=== PATIENT | female | born 1950 | race Caucasian/White ===

== ENCOUNTER 2019-01-14 18:49 | Emergency (ER) | payer OTHER, MEDICAID ==
[~2019-01-14] VITALS: Ht 157.5 cm; Wt 62.6 kg
[2019-01-14 19:16] VITALS: BP 166/90
--- NOTE | 2019-01-14 19:20 | NUR ---
TO LOBBY A/W BED, CINTIA MOYA NOTED
--- NOTE | 2019-01-14 19:35 | NUR ---
PT AMBULATED TO ED BED 05.
--- NOTE | 2019-01-14 19:45 | NUR ---
68/F PRESENTS TO ED WITH FAMILY, C/O DIZZINESS AND WEAKNESS SINCE THIS AM. PT REPORTS HAVING SIMILAR EPISODE 2 WEEKS AGO. PT REPORTS POSTERIOR HEADACHE. DENIES CP, SOB, N/V. -FACIAL DROOP, -ARM DRIFT, CLEAR SPEECH. AOX4, GCS 15, RR EVEN AND UNLABORED. LUNG SOUNDS CLEAR BL. DENIES MED HX RX CLARITIN, BENZONATATE
[2019-01-14] MEDS ORDERED: MECLIZINE 25 MG TAB PO ONE (20:00)
[2019-01-14 20:01] LABS: BASOPHILS # (AUTO) 0.1 K/uL (0.00-0.22); BASOPHILS % (AUTO) 1.1 % (0.0-2.0); EOSINOPHILS # (AUTO) 0.1 K/uL (0-0.4); HEMOGLOBIN 14.1 g/dL (12.0-16.0); LYMPHOCYTES # (AUTO) 5.2 K/uL (2.5-16.5); LYMPHOCYTES % (AUTO) 69.9 % (20.5-51.1); MEAN CORPUSCULAR HEMOGLOBIN 28 pg (27-31); MEAN CORPUSCULAR HGB CONC 33 g/dL (33-37); MEAN CORPUSCULAR VOLUME 86.6 fL (80-94); MONOCYTES # (AUTO) 0.4 K/uL (0.8-1.0); MONOCYTES % (AUTO) 5.5 % (1.7-9.3); NEUTROPHILS # (AUTO) 1.7 K/uL (1.8-7.7); NEUTROPHILS % (AUTO) 22.5 % (42.2-75.2); PLATELET COUNT (AUTO) 221 K/uL (140-450); RED BLOOD CELL COUNT(AUTO) 4.97 MIL/uL (4.20-5.40); RED CELL DISTRIBUTION WIDTH 15.1 % (11.6-13.7); WHITE BLOOD COUNT (AUTO) 7.5 K/uL (4.8-10.8)
--- NOTE | 2019-01-14 20:08 | NUR ---
Patient taken to CT via gurney.
[2019-01-14 20:11] LABS: CARBON DIOXIDE 29.1 mmol/L (21-32); CREATININE 1.1 mg/dL (0.6-1.3); POTASSIUM 4.1 mmol/L (3.5-5.1)
--- NOTE | 2019-01-14 20:16 | NUR ---
Patient returned from CT and placed into bed 5.
[2019-01-14 20:17] LABS: ALBUMIN 3.8 g/dL (3.4-5.0); TOTAL BILIRUBIN 0.3 mg/dL (0.0-1.0)
[2019-01-14 20:45] LABS: APPEARANCE,URINE CLEAR (CLEAR); BILIRUBIN,URINE NEGATIVE (NEGATIVE); BLOOD, URINE NEGATIVE (NEGATIVE); COLOR,URINE YELLOW (YELLOW); LEUKOCYTE ESTERASE ,URINE 2+ (NEGATIVE); NITRITE, URINE NEGATIVE (NEGATIVE); UGLUCOSE NEGATIVE (NEGATIVE)
--- NOTE | 2019-01-14 20:56 | NUR ---
PT LAYING IN BED, FAMILY AT BEDSIDE. REPORTS MILD IMPROVEMENT WITH DIZZINESS AFTER MECLIZINE PO. DENIES PAIN AT THIS TIME. ALL NEEDS MET.
[2019-01-14 21:05] LABS: RBC,URINE 0-5 /HPF (0-5); WBC,URINE 20-60 /HPF (0-5)
[2019-01-14 21:14] VITALS: BP 120/76
== END 2019-01-14 21:14 | disposition home or self-care (01) ==
LOC: MED 18:49
DX: R42 Dizziness and giddiness (principal); R51 Headache
CPT/HCPCS: 36415; 70450; 80053; 81001; 84484; 85025; 87086; 93005; 99284; J8597

== ENCOUNTER 2019-01-26 11:34 | Emergency (ER) | payer OTHER, MEDICAID ==
[~2019-01-26] VITALS: Ht 157.5 cm; Wt 62.6 kg
[2019-01-26 11:48] VITALS: BP 122/79
--- NOTE | 2019-01-26 11:58 | NUR ---
Patient ambulated to bed 5 at this time.
--- NOTE | 2019-01-26 12:12 | NUR ---
PT BIB SELF FOR DIZZYNESS X10 DAYS. PT WAS SEEN AT [facility] ON 01/14 FOR SAME REASON, DIAGNOSED WITH VERTIGO AND GIVEN PRESCRIPTION FOR MECLIZINE. PT STATES DIZZYNESS INCREASED 2 DAYS AGO AND SHE WENT TO PCP WHO TOLD HER TO INCREASE THE MECLIZINE TO 2 TABS BID. PT REPORTS NO RELIEF. PT ALSO REPORTS PRESSURE PAIN IN LT EAR THAT RADIATES TO BACK OF HEAD AT 7/10, THAT INCREASES WITH FLEXION OF NECK. PT REPORTS THAT SHE CANNOT STAND WITH BECOMING DIZZY THEN GETS NAUSEAS AND VOMITS. PT SPEECH CLEAR, FACIAL SYMMETRY INTACT, BUE EQUAL/STRONG, AAOX4, PERRLA. VSS. ER TO SEE PT. MEDHX:DENIES RX:MECLIZINE
--- NOTE | 2019-01-26 13:15 | NUR ---
[employer] # [id number]. ER MD DR MCKEON AT BEDSIDE
--- NOTE | 2019-01-26 13:22 | NUR ---
Patient being evaluated by DR MCKEON at bedside.
[2019-01-26] MEDS ORDERED: hydrOXYzine HCL 25 MG TAB PO STA (13:47)
--- NOTE | 2019-01-26 14:13 | NUR ---
PT REFUSING ANY BLOOD DRAW, ER NOTIFTED
[2019-01-26 15:16] LABS: APPEARANCE,URINE CLEAR (CLEAR); BILIRUBIN,URINE NEGATIVE (NEGATIVE); BLOOD, URINE NEGATIVE (NEGATIVE); COLOR,URINE YELLOW (YELLOW); LEUKOCYTE ESTERASE ,URINE TRACE (NEGATIVE); NITRITE, URINE NEGATIVE (NEGATIVE); UGLUCOSE NEGATIVE (NEGATIVE)
[2019-01-26 15:57] VITALS: BP 146/80
--- NOTE | 2019-01-26 15:57 | NUR ---
Patient discharged with v/s stable. Written and verbal after care instructions given and explained. Patient alert, oriented and verbalized understanding of instructions. Ambulatory with steady gait. All questions addressed prior to discharge. ID band removed. Patient advised to follow up with PMD. Rx of HYDROXYZINE given. Patient educated on indication of medication including possible reaction and side effects. Opportunity to ask questions provided and answered. PT WAITING FOR COUSIN TO PICK HER UP IN [employer]
== END 2019-01-26 15:57 | disposition home or self-care (01) ==
LOC: MED 11:34
DX: R42 Dizziness and giddiness (principal); R53.1 Weakness; R52 Pain, unspecified
CPT/HCPCS: 81002; 81003; 81025; 82948; 93005; 99284

== ENCOUNTER 2019-12-07 05:33 | Emergency (ER) | payer OTHER, MEDICAID ==
[~2019-12-07] VITALS: Ht 162.6 cm; Wt 63.5 kg
[2019-12-07 05:40] VITALS: BP 157/77
--- NOTE | 2019-12-07 05:53 | NUR ---
PT AMBULATED TO ER BED 06
--- NOTE | 2019-12-07 05:55 | NUR ---
PT 69 Y/O FEMALE BIB SELF FOR C/O SOB BREATH FOR A FEW HOURS. PT STATED,"I FEEL LIKE I CAN'T BREATHE AND I CAN'T SLEEP." PT RESPIRATIONS ARE EVEN AND UNLABORED. LUNG SOUNDS ARE CLEAR A/P BILAT. PT O2 SAT @ 99% ON RA. PT SKIN IS WARM AND DRY TO TOUCH. PT DENIES PAIN AT THIS TIME 0/10. PT CONTINENT OF BOWEL AND BLADDER. AFEBRILE. DENIES N/V/D. PT ON MONITOR. MEDHX: NONE ALLERGIES: NKA
[2019-12-07] MEDS ORDERED: ASPIRIN 325 MG TAB PO ONE (06:25)
[2019-12-07] MEDS ORDERED: ALBUTEROL SULFATE/IPRATROPIU 3 ML SOL IH ONE (06:25)
--- NOTE | 2019-12-07 06:41 | NUR ---
XRAY AT BEDSIDE.
--- NOTE | 2019-12-07 07:10 | NUR ---
GAVE REPORT TO NAEL SMART.
--- NOTE | 2019-12-07 07:18 | NUR ---
RECVD REPORT FROM [facility].
[2019-12-07 07:21] LABS: BASOPHILS % (AUTO) 0.3 % (0.0-2.0); EOSINOPHILS # (AUTO) 0.1 K/uL (0-0.4); EOSINOPHILS % (AUTO) 1.1 % (0.0-4.0); HEMATOCRIT 41.8 % (36-48); HEMOGLOBIN 13.5 g/dL (12.0-16.0); LYMPHOCYTES # (AUTO) 9.2 K/uL (2.5-16.5); LYMPHOCYTES % (AUTO) 83.3 % (20.5-51.1); MEAN CORPUSCULAR HEMOGLOBIN 28 pg (27-31); MEAN CORPUSCULAR HGB CONC 32 g/dL (33-37); MEAN CORPUSCULAR VOLUME 87.6 fL (80-94); MONOCYTES # (AUTO) 0.3 K/uL (0.8-1.0); MONOCYTES % (AUTO) 2.4 % (1.7-9.3); NEUTROPHILS # (AUTO) 1.4 K/uL (1.8-7.7); NEUTROPHILS % (AUTO) 12.9 % (42.2-75.2); PLATELET COUNT (AUTO) 190 K/uL (140-450); RED BLOOD CELL COUNT(AUTO) 4.77 MIL/uL (4.20-5.40)
[2019-12-07 07:31] LABS: ANION GAP 12.1 (8-16); CREATININE 0.7 mg/dL (0.6-1.3); POTASSIUM 4.1 mmol/L (3.5-5.1)
--- NOTE | 2019-12-07 08:00 | NUR ---
PT RESTING COMFORTABLY IN BED. ALL VSS AT THIS TIME. PT STATES 2/10 PAIN. ONE BEDRAIL UP FOR SAFETY.
--- NOTE | 2019-12-07 08:18 | NUR ---
Dr. Fischer is evaluating the patient at bedside.
--- NOTE | 2019-12-07 08:48 | NUR ---
Secondary EKG completed at bedside by EMT.
--- NOTE | 2019-12-07 09:44 | NUR ---
PT RESTING COMFORTABLY IN BED. ALL VSS AT THIS TIME. PT STATES 0/10 PAIN. ONE BEDRAIL UP FOR SAFETY.
[2019-12-07] MEDS ORDERED: ALBUTEROL 0.083% 2.5 MG/3 ML NEBU INH PRN (10:25)
[2019-12-07] MEDS ORDERED: HYDROcodone/APAP 5/325 MG 1 TAB TAB PO PRN (10:25)
[2019-12-07] MEDS ORDERED: ONDANSETRON 4 MG/2 ML VIAL IVP PRN (10:25)
[2019-12-07] MEDS ORDERED: MORPHINE SULFATE 4 MG/ML SYR IVP PRN (10:25)
[2019-12-07] MEDS ORDERED: LEVOFLOXACIN 750 MG/D5W PREMIX 150 ML IV SCH (10:25)
[2019-12-07] MEDS ORDERED: LORazepam 2 MG/ML VIAL IVP PRN (10:25)
[2019-12-07] MEDS ORDERED: GABA300C PO (10:33)
--- NOTE | 2019-12-07 10:47 | NUR ---
Dr. Hickey is evaluating the patient at bedside.
[2019-12-07] MEDS ORDERED: FUROSEMIDE 40 MG/4 ML VIAL IVP ONE (10:55)
--- NOTE | 2019-12-07 11:44 | NUR ---
Per Dr. Hickey, the admitting physician, the patient does not require any additional discharge paperwork and should be discharged from the emergency department.
--- NOTE | 2019-12-07 11:45 | NUR ---
IV removed, catheter intact and site benign. Applied folded 4x4 gauze and tape to stop bleeding.
--- NOTE | 2019-12-07 11:46 | NUR ---
PT TO BE DISCHARGED FROM ED WITH RX OF LASIX. PT INSTRUCTED TO FOLLOW UP WITH DR ANDRES. PT VEBALZIED UNDERSTANDING. NO DISCHARGE PAPERWORK REQUIRED PER DR ANDRES.
[2019-12-07 11:52] VITALS: BP 140/72
[2019-12-07] MEDS ORDERED: ALBUTEROL SULFATE/IPRATROPIU 3 ML SOL IH SCH (13:00)
[2019-12-07] MEDS ORDERED: methylPREDNISolone SS 40 MG in WATER STERILE 1 ML IV SCH (21:00)
[2019-12-08] MEDS ORDERED: ENOXAPARIN 40 MG/0.4 ML SYR SUBQ SCH (09:00)
[2019-12-08] MEDS ORDERED: ASPIRIN 81 MG TAB.CHEW PO SCH (09:00)
== END 2019-12-07 11:46 | disposition still patient (30) ==
LOC: MED 05:33
DX: R07.9 Chest pain, unspecified (principal); R06.02 Shortness of breath
CPT/HCPCS: 36415; 36600; 71045; 80048; 82803; 84484; 85025; 93005; 94640; 99285; J7620; Q0092

== ENCOUNTER 2023-10-22 14:15 | Emergency (ER) | payer MEDICARE, OTHER ==
[~2023-10-22] VITALS: Ht 160 cm; Wt 62.6 kg
[~2023-10-22 14:15] MED LIST: GABA300C PO
[2023-10-22 14:28] VITALS: BP 158/87; PULSE 85; RESP 18; TEMP 97.9; O2SAT 98
[2023-10-22] MEDS ORDERED: ACETAMINOPHEN 325 MG TAB PO ONE (15:15)
[2023-10-22] MEDS ORDERED: PANTOPRAZOLE 40 MG INJ VIAL IVP ONE (15:15)
[2023-10-22] MEDS ORDERED: NACL 0.9% 1,000 ML IV ONE (15:15)
[2023-10-22 16:16] LABS: APPEARANCE,URINE CLEAR (CLEAR); BILIRUBIN,URINE NEGATIVE (NEGATIVE); BLOOD, URINE NEGATIVE (NEGATIVE); COLOR,URINE YELLOW (YELLOW); LEUKOCYTE ESTERASE ,URINE NEGATIVE (NEGATIVE); NITRITE, URINE NEGATIVE (NEGATIVE); PROTEIN,URINE NEGATIVE (NEGATIVE); UGLUCOSE NEGATIVE (NEGATIVE); UROBILINOGEN,URINE 0.2 EU/dL (0.2 - 1)
[2023-10-22 16:16] LABS: ALANINE AMINOTRANSFERASE 25 U/L (12-78); ALBUMIN 3.7 g/dL (3.4-5.0); ALKALINE PHOSPHATASE 46 U/L (50-136); ASPARTATE AMINOTRANSFERASE 21 U/L (15-37); BILIRUBIN,DIRECT 0.1 mg/dL (0.0-0.3); LIPASE 35 U/L (16-77); TOTAL BILIRUBIN 0.3 mg/dL (0.0-1.0); TOTAL PROTEIN, SERUM 7.7 g/dL (6.4-8.2)
[2023-10-22 17:16] LABS: BASOPHILS # (AUTO) 0.1 K/uL (0.00-0.22); BASOPHILS % (AUTO) 0.2 % (0.0-2.0); EOSINOPHILS # (AUTO) 0.1 K/uL (0-0.4); EOSINOPHILS % (AUTO) 0.3 % (0.0-4.0); HEMATOCRIT 38.1 % (36-48); HEMOGLOBIN 12.9 g/dL (12.0-16.0); LYMPHOCYTES % (AUTO) 93.1 % (20.5-51.1); MEAN CORPUSCULAR HEMOGLOBIN 30 pg (27-31); MEAN CORPUSCULAR HGB CONC 34 g/dL (33-37); MEAN CORPUSCULAR VOLUME 88.6 fL (80-94); MONOCYTES # (AUTO) 0.3 K/uL (0.8-1.0); MONOCYTES % (AUTO) 0.8 % (1.7-9.3); NEUTROPHILS # (AUTO) 1.9 K/uL (1.8-7.7); NEUTROPHILS % (AUTO) 5.6 % (42.2-75.2); PLATELET COUNT (AUTO) 123 K/uL (140-450); RED BLOOD CELL COUNT(AUTO) 4.31 MIL/uL (4.20-5.40); RED CELL DISTRIBUTION WIDTH 15.6 % (11.6-13.7)
[2023-10-22 17:21] LABS: WHITE BLOOD COUNT (AUTO) 33.2 K/uL (4.8-10.8)
[2023-10-22 17:23] LABS: ANION GAP 10.7 (8-16); CALCIUM 9.1 mg/dL (8.5-10.1); CARBON DIOXIDE 29.1 mmol/L (21-32); CHLORIDE 103 mmol/L (98-107); GLUCOSE 106 mg/dL (74-106); POTASSIUM 3.8 mmol/L (3.5-5.1); SODIUM SERUM 139 mmol/L (136-145); UREA NITROGEN, BLOOD 19 mg/dL (7-18)
[2023-10-22 17:40] LABS: FLU A ANTIGEN negative (NEGATIVE); FLU B ANTIGEN negative (NEGATIVE)
[2023-10-22] MEDS ORDERED: OMEP40EC23 PO ×2 (19:09→19:50)
[2023-10-22] MEDS ORDERED: MECL-303 PO ×2 (19:31→19:50)
[2023-10-22 19:55] VITALS: BP 122/84; PULSE 64; RESP 20; TEMP 97.7; O2SAT 97
== END 2023-10-22 19:55 | disposition home or self-care (01) ==
LOC: MED 14:15
DX: R19.7 Diarrhea, unspecified (principal); Z20.822 Contact with and (suspected) exposure to COVID-19; C92.11 Chronic myeloid leukemia, BCR/ABL-positive, in remission; I10 Essential (primary) hypertension; E78.5 Hyperlipidemia, unspecified; Z79.899 Other long term (current) drug therapy
CPT/HCPCS: 36415; 71045; 74177; 80048; 80076; 81003; 83690; 84484; 85025; 87426; 87804; 93005; 96361; 96374; 99285; C9113; J7030; Q0092; Q9967